=== PATIENT | female | born 1990 | race Caucasian/White ===

== ENCOUNTER 2018-09-01 19:03 | Emergency (ER) | payer MEDICAID, OTHER ==
[~2018-09-01] VITALS: Ht 180.3 cm; Wt 93.0 kg
[~2018-09-01 19:03] MED LIST: POLY10DR3 OP
[2018-09-01] MEDS ORDERED: DEXAMETHASONE SOD PHOSPHATE 10 MG/ML VIAL ONE (19:22)
[2018-09-01] MEDS ORDERED: diphenhydrAMINE HCL 50 MG/ML VIAL IV ONE (19:30)
[2018-09-01] MEDS ORDERED: FAMOTIDINE/PF INJ 20 MG/2 ML VIAL IV ONE ×2 (19:30)
[2018-09-01] MEDS ORDERED: diphenhydrAMINE HCL 50 MG/ML VIAL ONE (19:30)
[2018-09-01] MEDS ORDERED: DEXAMETHASONE SOD PHOSPHATE 10 MG/ML VIAL IV ONE (19:30)
--- NOTE | 2018-09-01 19:41 | NUR ---
PT BIB FAMILY FOR ALLERGIC RAECTION, RT EYE SWELLING WITH LIPS, VS STABLE, NO SOB OR C/O PAIN, UNK CAUSE PER PT, PLACED ON ER BED 2, SEEN AND EVAL BY DR LOBATO, TX ORDERS AND MEDS ENTERED. IV LINE STARTED.
[2018-09-01] MEDS ORDERED: EPINEPHRINE (1:1000) 1 MG/ML AMPUL ONE (20:23)
[2018-09-01] MEDS ORDERED: EPINEPHRINE (1:1000) MDV 30 MG/30ML VIAL SUBCUT ONE (20:30)
--- NOTE | 2018-09-01 22:42 | NUR ---
Patient discharged to home in stable condition. Written and verbal after care instructions, with rx given. Patient verbalizes understanding of instruction.
[2018-09-01 23:01] VITALS: BP 121/84
== END 2018-09-01 23:02 | disposition home or self-care (01) ==
LOC: ER 19:12
DX: T78.2XXA Anaphylactic shock, unspecified, initial encounter (principal)
CPT/HCPCS: J0171; J1100; J1200; J3490